=== PATIENT | male | born 1955 | race Caucasian/White ===

== ENCOUNTER 2016-12-09 02:18 | Inpatient (IN) ==
[2016-12-09 02:40] LABS: Basophils # 0.1 K/mcL (0.0-0.2); Basophils % 0.9 %; Eosinophils # 0.9 K/mcL (0.0-0.6); Eosinophils % 8.2 %; Hematocrit 31.5 % (37.5-50.1); Hemoglobin 10.4 g/dL (12.9-16.9); Immature Granulocytes % 0.5 % (0-4); Lymphocytes # 1.7 K/mcL (0.6-4.6); Lymphocytes % 15.2 %; Mean Corpuscular Hemoglobin 29.3 pg (28.0-33.3); Mean Corpuscular Volume 88.7 fL (83.0-100.0); Mean Platelet Volume 10.4 fL (9.4-12.4); Monocytes # 0.7 K/mcL (0.0-1.3); Monocytes % 6.8 %; Neutrophils # 7.5 K/mcL (1.6-8.9); Platelet Count 364 K/mcL (140-400); Red Blood Count 3.55 M/mcL (4.19-5.50); Red Cell Distribution Width 13.3 % (11.5-14.5); Segmented Neutrophils % 68.4 %
[2016-12-09 02:45] LABS: Prothrombin Time 10.9 Seconds (9.4-12.1)
[2016-12-09 02:53] LABS: Calcium 8.6 mg/dL (8.6-10.8); Potassium 4.7 mEq/L (3.5-4.5)
[2016-12-09 03:38] LABS: ABG Base Excess -2.3 mEq/L (-2.0 to 3.0); ABG HCO3 22.4 mEQ/L (21-27); ABG Oxygen Saturation 91 % (95-98); ABG PCO2 37 mmHg (35-45); ABG PH 7.39 pH Units (7.32-7.45); ABG PO2 63 mmHg (85-104); ABG TCO2 23.5 mEq/L (20-26)
[2016-12-09 03:39] LABS: Blood Gas FiO2 40 %
[2016-12-09 06:50] LABS: Chol/HDL Ratio 3.3 (0-4.9)
[2016-12-09 08:43] LABS: Hemoglobin 10.1 g/dL (12.9-16.9); Mean Corpuscular HGB Conc 33.7 g/dL (31.6-35.5); Platelet Count 341 K/mcL (140-400); Red Blood Count 3.37 M/mcL (4.19-5.50); Red Cell Distribution Width 13.5 % (11.5-14.5)
[2016-12-09 08:46] LABS: Prothrombin Time 10.7 Seconds (9.4-12.1)
[2016-12-09 08:49] LABS: Activated Partial Thrombo Time 32.9 Seconds (26.0-36.0)
[2016-12-10 05:47] LABS: Basophils % 0.1 %; Eosinophils % 0.1 %; Hematocrit 24.1 % (37.5-50.1); Immature Granulocytes % 0.6 % (0-4); Lymphocytes # 2.1 K/mcL (0.6-4.6); Mean Corpuscular HGB Conc 33.2 g/dL (31.6-35.5); Mean Corpuscular Hemoglobin 29.4 pg (28.0-33.3); Mean Corpuscular Volume 88.6 fL (83.0-100.0); Mean Platelet Volume 10.9 fL (9.4-12.4); Monocytes # 1.2 K/mcL (0.0-1.3); Neutrophils # 13.8 K/mcL (1.6-8.9); Platelet Count 306 K/mcL (140-400); Red Blood Count 2.72 M/mcL (4.19-5.50); Red Cell Distribution Width 13.6 % (11.5-14.5); Segmented Neutrophils % 80.2 %
[2016-12-10 06:00] LABS: Calcium 7.9 mg/dL (8.6-10.8); Potassium 4.4 mEq/L (3.5-4.5)
[2016-12-10 13:15] LABS: 2009 H1N1 PCR NOT DETECTED (Not Detect); Influenza A PCR Negative (Negative); Influenza B PCR Negative (Negative)
[2016-12-10 15:16] LABS: Basophils % 0.2 %; Eosinophils # 0.1 K/mcL (0.0-0.6); Eosinophils % 0.5 %; Hematocrit 21.3 % (37.5-50.1); Immature Granulocytes % 0.8 % (0-4); Lymphocytes # 1.4 K/mcL (0.6-4.6); Lymphocytes % 10.8 %; Mean Corpuscular HGB Conc 32.9 g/dL (31.6-35.5); Mean Corpuscular Hemoglobin 29.8 pg (28.0-33.3); Mean Corpuscular Volume 90.6 fL (83.0-100.0); Monocytes # 0.9 K/mcL (0.0-1.3); Monocytes % 7.2 %; Neutrophils # 10.5 K/mcL (1.6-8.9); Platelet Count 283 K/mcL (140-400); Red Blood Count 2.35 M/mcL (4.19-5.50); Red Cell Distribution Width 14.1 % (11.5-14.5); Segmented Neutrophils % 80.5 %
[2016-12-10 17:22] LABS: % Iron Saturation 54 % (20-55); Iron 126 mcg/dL (65-175); Transferrin 167 mg/dL (174-364)
[2016-12-10 17:32] LABS: Bilirubin,Urine Negative (Negative); Blood,Urine Negative (Negative); Clarity,Urine Clear (Clear); Color,Urine Yellow (Yellow); Glucose,Urine (UA) 500 mg/dL (Normal); Ketones,Urine Negative (Negative); Leukocyte Esterase,Urine Negative (Negative); Nitrite,Urine Negative (Negative); PH,Urine 5.5 pH Units (5.0-8.0); Protein,Urine 100 mg/dL (Neg-Trace); Specific Gravity,Urine 1.019 (1.010-1.025); Urobilinogen,Urine Normal (Normal)
[2016-12-10 17:45] LABS: Bacteria,Urine None Seen per hpf (None-Few); Hyaline Casts,Urine None Seen per lpf (None-Few); Squamous Epithelial Cell,Urine Few per lpf (None-Few); WBC,Urine 0-3 per hpf (0-3)
[2016-12-11 05:43] LABS: Basophils # 0.1 K/mcL (0.0-0.2); Basophils % 0.5 %; Eosinophils # 0.3 K/mcL (0.0-0.6); Eosinophils % 3.2 %; Hematocrit 25.5 % (37.5-50.1); Hemoglobin 8.2 g/dL (12.9-16.9); Immature Granulocytes % 1.3 % (0-4); Lymphocytes # 1.6 K/mcL (0.6-4.6); Lymphocytes % 17.1 %; Mean Corpuscular HGB Conc 32.2 g/dL (31.6-35.5); Mean Corpuscular Hemoglobin 28.4 pg (28.0-33.3); Mean Corpuscular Volume 88.2 fL (83.0-100.0); Mean Platelet Volume 10.8 fL (9.4-12.4); Monocytes # 0.7 K/mcL (0.0-1.3); Monocytes % 7.8 %; Neutrophils # 6.5 K/mcL (1.6-8.9); Platelet Count 218 K/mcL (140-400); Potassium 4.9 mEq/L (3.5-4.5); Red Blood Count 2.89 M/mcL (4.19-5.50); Red Cell Distribution Width 14.8 % (11.5-14.5); Segmented Neutrophils % 70.1 %
[2016-12-11 08:06] VITALS: BP 167/80
== END 2016-12-11 11:38 | disposition left against medical advice (07) | DRG 246 ==
LOC: EMEROO 02:18 → 2NENU 02:18 → SUATTDRO 07:51 → 2NNU 16:14
PROVIDERS: ADMIT Internal Medicine; ATTEND Internal Medicine

== ENCOUNTER 2017-04-20 21:07 | Inpatient (IN) ==
[2017-04-20] MEDS ORDERED: Furosemide 40 MG/4 ML VIAL IVP ONE ×2 (21:10→23:21)
[2017-04-20] MEDS ORDERED: methylPREDNISolone 125 MG/2 ML VIAL IVP ONE (21:10)
[2017-04-20] MEDS ORDERED: Ipratropium/Albuterol Neb 3 ML IH ONE (21:10)
--- NOTE | 2017-04-20 21:14 | Emergency Department Note ---
Disposition Clinical Impression: Acute exacerbation of chronic obstructive airways disease, Elevated troponin, Respiratory distress Congestive heart failure Qualifiers: Congestive heart failure type: unspecified congestive heart failure type Congestive heart failure chronicity: acute Qualified Code(s): I50.9 - Heart failure, unspecified Chest pain Qualifiers: Chest pain type: other chest pain Qualified Code(s): R07.89 - Other chest pain ; R07.8 - Other chest pain Disposition: Admitted As Inpatient Condition: Fair Forms: ED Satisfaction Letter Time of Disposition: 22:56 SOB HPI - General Chief Complaint: ED Shortness of Breath/Dyspnea Stated Complaint: SOB Time Seen by Provider: 04/20/17 21:07 Source: patient, EMS Mode of arrival: EMS Nursing Notes Reviewed: Yes Vital Signs Reviewed: Yes - History of Present Illness 61-year-old male presents to the emergency Department lameness with a complaint of substernal chest pain which started about 5:30 PM this afternoon while mowing his lawn. No radiation of the pain. He then developed shortness of breath and diaphoresis. He has a history of COPD. He took 6 of his nitroglycerin at home with no relief of the chest pain. EMS gave him one spray of nitroglycerin sublingual which significantly relieved his chest discomfort however his breathing seemed to get worse. Initial oxygen saturation was in the 80s. He received a DuoNeb treatment in route and was placed on CPAP with some improvement. On arrival here patient in moderate respiratory distress and mildly diaphoretic. He is alert. Patient has had some increased cough and congestion for the past few days and was just started on a Z-Bienvenido and steroids yesterday by his PCP. Pt Subjective Complaint: shortness of breath, chest pain Onset (ago): hour(s) (3.5) Context: recent illness Severity: severe Consistency/Duration: constant, gradually worsening Improves with: oxygen, bronchodilators, upright position, medication Worsens with: lying flat, exertion Known history of: COPD, diabetes Associated symptoms: Reports: chest pain, cough, wheezing, diaphoresis. Denies : fever Treatment prior to arrival: oxygen, bronchodilator, nitroglycerin Cough present: Yes Cough Frequency: Intermittent - Related Data Home Medications Medication Instructions Recorded Confirmed Aspirin [Lo-Dose Aspirin EC] 81 mg PO DAILY 12/09/16 12/09/16 Atorvastatin Calcium [Lipitor] 80 mg PO DAILY 12/09/16 12/09/16 Cilostazol 100 mg PO BID 12/09/16 12/09/16 Clopidogrel [Plavix] 75 mg PO DAILY 12/09/16 12/09/16 Ferrous Gluconate 324 mg PO BID 12/09/16 12/09/16 Gabapentin [Neurontin] 600 mg PO TID 12/09/16 12/09/16 Insulin Degludec [Tresiba 55 unit SQ HS 12/09/16 12/09/16 Flextouch U-100] Insulin Human Regular [HumuLIN R] 20 unit SQ TID 12/09/16 12/09/16 Irbesartan [Avapro] 300 mg PO HS 12/09/16 12/09/16 Metoprolol Tartrate 25 mg PO BID 12/09/16 12/09/16 Omeprazole [PriLOSEC] 20 mg PO DAILY 12/09/16 12/09/16 Spironolact/Hydrochlorothiazid 1 tab PO DAILY 12/09/16 12/09/16 [Aldactazide 25-25 Tablet] Vortioxetine Hydrobromide 10 mg PO DAILY 12/09/16 12/09/16 [Trintellix] amLODIPine [Norvasc] 10 mg PO HS 12/09/16 12/09/16 Allergies Allergy/AdvReac Type Severity Reaction Status Date / Time No Known Allergies Allergy Verified 12/09/16 02:29 All systems ED: reviewed and negative except as stated. Cardiovascular: Reports: chest pain Respiratory: Reports: cough, dyspnea, wheezes Past Medical History - Past Medical History Medical history: Reports: coronary artery disease, diabetes, hyperlipidemia, hypertension, myocardial infarction, peripheral artery disease, renal disease Psychiatric history: Reports: no psych history - Social History Smoking Status: Current every day smoker Smokeless Tobacco Status: No Alcohol use: Reports: none Drug use: Reports: none Physical Exam - General General appearance: alert, in distress - Head Head exam: atraumatic, normocephalic, normal inspection - Eye Eye exam: Present: normal appearance, PERRL, EOMI. Absent: scleral icterus, conjunctival injection - ENT ENT exam: normal exam, normal oropharynx, mucous membranes moist - Neck Neck exam: Present: normal inspection, full ROM, trachea midline. Absent: tenderness, meningismus, lymphadenopathy - Chest Chest inspection: Present: normal inspection, symmetric chest wall rise. Absent : tenderness - Respiratory Respiratory exam: Present: respiratory distress, wheezes (Scattered bilateral inspiratory and expiratory wheezes.), other (Course moist bibasilar rales.) - Cardiovascular Cardiovascular exam: Present: normal rhythm, tachycardia, normal heart sounds, other (Frequent ectopy) - Abdominal Exam Abdominal exam: Present: soft, Non-Tender, normal bowel sounds - Extremities Exam Extremities exam: Present: normal inspection, full ROM, pedal edema (2+). Absent: tenderness - Back Exam Back exam: Present: normal inspection. Absent: CVA tenderness (R), CVA tenderness (L) - Neurological Exam Neurological exam: Present: alert, oriented X3 - Psychiatric Psychiatric exam: Present: anxious - Skin Skin exam: Present: diaphoresis. Absent: cyanosis Course Course Narrative: 61-year-old male with history of COPD presents to the emergency department with chest pain and difficulty breathing. Arrived on CPAP. Placed on BiPAP on arrival. Patient received 3 DuoNeb and IV Solu-Medrol with significant improvement in his breathing. He also received Lasix 40 mg IV. Chest pain mostly resolved.. Workup revealed elevated troponin. Patient given aspirin. The hospitalist, Dr. Holland, was consulted and accepted admission of the patient. - Consultations Consultation #1: The hospitalist, Dr. Holland, was consulted and accepted admission of the patient. Time: 22:30 Vital Signs Temperature 97 F L 04/20/17 21:09 Pulse Rate 120 04/20/17 21:09 Respiratory Rate 26 04/20/17 21:09 Blood Pressure 166/96 04/20/17 21:09 O2 Sat by Pulse Oximetry 92 04/20/17 21:09 Temperature 97 F L 04/20/17 21:09 Pulse Rate 73 04/20/17 22:27 Respiratory Rate 16 04/20/17 22:27 Blood Pressure 151/74 04/20/17 22:27 O2 Sat by Pulse Oximetry 95 04/20/17 22:27 Oxygen Delivery Oxygen Delivery Bipap Shortness of Breath/Dyspnea - Lab Data Result diagrams: 04/20/17 21:31 04/20/17 21:31 Lab Results 04/20/17 04/20/17 04/20/17 Range/Units 21:31 21:31 21:31 WBC 14.4 H (4.3-11.1) K/mcL RBC 3.25 L (4.19-5.50) M/mcL Hgb 9.5 L (12.9-16.9) g/dL Hct 30.4 L (37.5-50.1) % MCV 93.5 (83.0-100.0) fL MCH 29.2 (28.0-33.3) pg MCHC 31.3 L (31.6-35.5) g/dL RDW 14.7 H (11.5-14.5) % Plt Count 405 H (140-400) K/mcL MPV 9.7 (9.4-12.4) fL Immature Gran % 1.0 (0-4) % Seg Neutrophils % 87.6 % Lymphocytes % 7.4 % Monocytes % 3.9 % Eosinophils % 0.0 % Basophils % 0.1 % Neutrophils # 12.6 H (1.6-8.9) K/mcL Lymphocytes # 1.1 (0.6-4.6) K/mcL Monocytes # 0.6 (0.0-1.3) K/mcL Eosinophils # 0.0 (0.0-0.6) K/mcL Basophils # 0.0 (0.0-0.2) K/mcL Nucleated RBCs/100 WBC 0.1 H (0) /100 WBC Sodium 136 (136-145) mEq/L Potassium 4.9 H (3.5-4.5) mEq/L Chloride 107 (98-109) mEq/L Carbon Dioxide 16 L (19-29) mEq/L BUN 68 H (8-26) mg/dL Creatinine 2.97 H (0.72-1.25) mg/dL Est GFR ( Amer) 26 L (> 60) Est GFR (Non-Af Amer) 22 L (> 60) BUN/Creatinine Ratio 23 (6-26) Glucose 383 H (70-99) mg/dL Calculated Osmolality 318 H (280-300) Lactic Acid 3.3 H (0.5-2.2) mmol/L Calcium 9.1 (8.6-10.8) mg/dL Troponin I (0-0.03) ng/mL B-Natriuretic Peptide (0-100) pg/mL 04/20/17 04/20/17 Range/Units 21:31 21:31 WBC (4.3-11.1) K/mcL RBC (4.19-5.50) M/mcL Hgb (12.9-16.9) g/dL Hct (37.5-50.1) % MCV (83.0-100.0) fL MCH (28.0-33.3) pg MCHC (31.6-35.5) g/dL RDW (11.5-14.5) % Plt Count (140-400) K/mcL MPV (9.4-12.4) fL Immature Gran % (0-4) % Seg Neutrophils % % Lymphocytes % % Monocytes % % Eosinophils % % Basophils % % Neutrophils # (1.6-8.9) K/mcL Lymphocytes # (0.6-4.6) K/mcL Monocytes # (0.0-1.3) K/mcL Eosinophils # (0.0-0.6) K/mcL Basophils # (0.0-0.2) K/mcL Nucleated RBCs/100 WBC (0) /100 WBC Sodium (136-145) mEq/L Potassium (3.5-4.5) mEq/L Chloride (98-109) mEq/L Carbon Dioxide (19-29) mEq/L BUN (8-26) mg/dL Creatinine (0.72-1.25) mg/dL Est GFR ( Amer) (> 60) Est GFR (Non-Af Amer) (> 60) BUN/Creatinine Ratio (6-26) Glucose (70-99) mg/dL Calculated Osmolality (280-300) Lactic Acid (0.5-2.2) mmol/L Calcium (8.6-10.8) mg/dL Troponin I 0.17 H* (0-0.03) ng/mL B-Natriuretic Peptide 927 H (0-100) pg/mL Critical Care Time Critical Care Time: Yes Total Critical Care Time: 40 Attestation: Critical care performed: Time is exclusive of separately billable procedures. Time includes: direct patient care, patient reassessment, coordination of patient care, interpretation of data (laboratory data, radiology data, and respiratory data), review of patient's medical records, medical consultation and documentation of patient care. Procedures included in critical care time: Procedures excluded from critical care time:
[2017-04-20 21:40] LABS: Basophils % 0.1 %; Hematocrit 30.4 % (37.5-50.1); Hemoglobin 9.5 g/dL (12.9-16.9); Lymphocytes # 1.1 K/mcL (0.6-4.6); Lymphocytes % 7.4 %; Mean Corpuscular HGB Conc 31.3 g/dL (31.6-35.5); Mean Corpuscular Hemoglobin 29.2 pg (28.0-33.3); Mean Corpuscular Volume 93.5 fL (83.0-100.0); Mean Platelet Volume 9.7 fL (9.4-12.4); Monocytes # 0.6 K/mcL (0.0-1.3); Monocytes % 3.9 %; Neutrophils # 12.6 K/mcL (1.6-8.9); Nucleated Red Blood Cells 0.1 /100 WBC (0); Platelet Count 405 K/mcL (140-400); Red Blood Count 3.25 M/mcL (4.19-5.50); Red Cell Distribution Width 14.7 % (11.5-14.5); Segmented Neutrophils % 87.6 %
[2017-04-20 21:51] LABS: Calcium 9.1 mg/dL (8.6-10.8); Potassium 4.9 mEq/L (3.5-4.5)
[2017-04-20] MEDS ORDERED: Aspirin 81 MG TAB.CHEW PO STA (22:52)
[2017-04-20] MEDS ORDERED: Sodium Bicarbonate 50 MEQ/50 ML VIAL IVP ONE (23:17)
[2017-04-20] MEDS ORDERED: Calcium Gluconate 1,000 MG in D5% in Water 100 ML IVPB ONE (23:17)
[2017-04-20] MEDS ORDERED: *HR* Heparin 5,000 UNIT/ML VIAL IVP PRN ×2 (23:22)
[2017-04-20] MEDS ORDERED: *HR* Heparin 5,000 UNIT/ML VIAL IVP ONE (23:22)
[2017-04-20] MEDS ORDERED: Heparin 25,000 UNIT/500 ML D5W 25,000 UNIT/500 ML MLS IVC SCH (23:30)
[2017-04-20] MEDS ORDERED: Nitroglycerin 25 MG/250 ML INFUS..BTL IVC SCH (23:30)
--- NOTE | 2017-04-20 23:32 | Internal Med History&Physical ---
Date of Encounter: 04/20/17 Time of Encounter: 23:31 Assessment and Plan (1) Diabetes mellitus Current visit: Yes Status: Acute Continue home regimen. In addition to sliding scale. Qualifiers: Diabetes mellitus type: type 2 Qualified Code(s): E11.9 - Type 2 diabetes mellitus without complications (2) Acute exacerbation of chronic obstructive airways disease Current visit: Yes Status: Acute Will give [id number] nebulizer treatments low-dose steroids. (3) Congestive heart failure Current visit: Yes Status: Acute I think this is the main reason for presentation. Will give Lasix 80 mg initially than 40 mg IV twice daily. Qualifiers: Congestive heart failure type: unspecified congestive heart failure type Congestive heart failure chronicity: acute Qualified Code(s): I50.9 - Heart failure, unspecified (4) Elevated troponin Current visit: Yes Status: Acute Rule out non-STEMI type I. Given the typicality of his pain I will start the patient on heparin drip and Nitro drip as a still hypertensive. Continue dual antiplatelet therapy (5) Acute respiratory failure Current visit: No Status: Acute Due to congestive heart failure mainly, to a lesser extent COPD exacerbation. He is currently on BiPAP continue BiPAP support Qualifiers: Respiratory failure complication: hypoxia Qualified Code(s): J96.01 - Acute respiratory failure with hypoxia Internal Medicine - H&P: HPI History of present illness: Mr. Peters is a 61 year old male with multiple medical problems including coronary artery disease status post recent PCI on dual antiplatelet therapy with aspirin Plavix, ischemic cardiomyopathy ejection fraction 45%, diabetes mellitus, hypertension, chronic kidney disease stage 3, and suspected history of COPD given 90 pack/year smoking history presented emergency room today with shortness of breath. Patient was mowing his land for 4 hours today started experiencing left pectoral chest pain lasted for approximately 2 hours till he arrived to emergency room. He took 6 tablets of sublingual nitroglycerin home without improvement of his pain. He was given sublingual nitroglycerin spray by paramedics with improvement of his chest pain. His also noted that he was notably short of breath during his chest pain. He was hypoxic and paramedics placed him on BiPAP. 2 days ago patient has seen his PCP who thought that he is having a COPD exacerbation and he was started on azithromycin as well as prednisone which he started taking yesterday. Denies any fevers or chills. He was off pain during my interview Past Med Surg Social Fam HX - Past Medical History Medical history: coronary artery disease, diabetes, hyperlipidemia, hypertension , myocardial infarction, peripheral artery disease, renal disease Psychiatric history: no psych history - Social History Smoking Status: Current every day smoker Smokeless Tobacco Status: No Alcohol use: none Drug use: none - Family History Mother Living Status: Hx Family Cardiac Disorders: Yes ([place]) Hx Family Respiratory Disorders: No Hx Family Cancer: No Hx Family GI Disorders: No Hx Family Endocrine Disorder: Yes (DM) Hx Family Neuromuscular Disorders: No Hx Family Neurologic Disorders: No Hx Family HEENT Disorders: No Hx Family Autoimmune Disorders: No Father Living Status: Still Living Hx Family Cardiac Disorders: Yes (pacer) Hx Family Respiratory Disorders: No Hx Family Cancer: No Hx Family GI Disorders: No Hx Family Endocrine Disorder: Yes (dM) Hx Family Neuromuscular Disorders: No Hx Family Neurologic Disorders: No Hx Family HEENT Disorders: No Hx Family Autoimmune Disorders: No Son Living Status: Still Living Hx Family Cardiac Disorders: Yes (HTN) Hx Family Respiratory Disorders: No Hx Family Cancer: No Hx Family GI Disorders: No Hx Family Endocrine Disorder: No Hx Family Neuromuscular Disorders: No Hx Family Neurologic Disorders: No Hx Family HEENT Disorders: No Hx Family Autoimmune Disorders: No Internal Medicine - H&P: Meds Aspirin [Lo-Dose Aspirin EC] 81 mg PO DAILY 12/09/16 [History] Atorvastatin Calcium [Lipitor] 80 mg PO DAILY 12/09/16 [History] Cilostazol 100 mg PO BID 12/09/16 [History] Clopidogrel [Plavix] 75 mg PO DAILY 12/09/16 [History] Ferrous Gluconate 324 mg PO BID 12/09/16 [History] Gabapentin [Neurontin] 600 mg PO TID 12/09/16 [History] Insulin Degludec [Tresiba Flextouch U-100] 55 unit SQ HS 12/09/16 [History] Insulin Human Regular [HumuLIN R] 20 unit SQ TID 12/09/16 [History] Irbesartan [Avapro] 300 mg PO HS 12/09/16 [History] Metoprolol Tartrate 25 mg PO BID 12/09/16 [History] Omeprazole [PriLOSEC] 20 mg PO DAILY 12/09/16 [History] Spironolact/Hydrochlorothiazid [Aldactazide 25-25 Tablet] 1 tab PO DAILY [History] Vortioxetine Hydrobromide [Trintellix] 10 mg PO DAILY 12/09/16 [History] amLODIPine [Norvasc] 10 mg PO HS 12/09/16 [History] Allergies No Known Allergies Allergy (Verified 12/09/16 02:29) All Systems PM: A 10-system review of systems was performed and is negative for pertinent findings except as documented above in the HPI. Review of systems: 10 point review of systems is negative except for HPI - Constitutional Vitals: Temp Pulse Resp BP Pulse Ox 97 F L 107 22 183/93 99 04/20/17 21:09 04/20/17 23:11 04/20/17 23:11 04/20/17 23:11 04/20/17 23:11 Exam: Gen.: patient is alert oriented times 3 mild respiratory distress cardiac: normal S1 S2 no additional sounds or murmurs chest: crackles in both bases. diminished air entry. scattered expiratory wheezes abdomen soft nontender nondistended normal bowel sounds lower extremity 1+ swelling. Neuro: no new focal deficits Internal Med - H&P Results - Labs CBC & Chem 7: 04/20/17 21:31 04/20/17 21:31 Labs: Short CBC 04/20/17 Range/Units 21:31 WBC 14.4 H (4.3-11.1) K/mcL Hgb 9.5 L (12.9-16.9) g/dL Hct 30.4 L (37.5-50.1) % Plt Count 405 H (140-400) K/mcL Neutrophils # 12.6 H (1.6-8.9) K/mcL BMP 04/20/17 21:31 Sodium 136 Potassium 4.9 H Chloride 107 Carbon Dioxide 16 L BUN 68 H Creatinine 2.97 H Glucose 383 H Calcium 9.1 Cardiac Enzymes 04/20/17 Range/Units 21:31 Troponin I 0.17 H* (0-0.03) ng/mL - Impressions ITS Impressions Chest X-Ray 04/20/17 21:10 IMPRESSION: Prominence of the interstitial markings and peribronchial thickening suggestive of interstitial edema. D/ / Farideh Cole Cha, MD / Farideh Cole Cha, MD Interpreting Provider: Farideh Cole Cha, MD
[2017-04-20] MEDS ORDERED: Azithromycin 500 MG in D5% in Water 250 ML IVPB SCH (23:45)
[2017-04-21 00:29] LABS: Hematocrit 28.9 % (37.5-50.1); Immature Platelets 2.7 % (1.1-6.1); Mean Corpuscular HGB Conc 31.1 g/dL (31.6-35.5); Mean Corpuscular Hemoglobin 29.1 pg (28.0-33.3); Mean Corpuscular Volume 93.5 fL (83.0-100.0); Red Blood Count 3.09 M/mcL (4.19-5.50); Red Cell Distribution Width 14.6 % (11.5-14.5)
[2017-04-21 00:38] LABS: INR 1.1; Prothrombin Time 11.5 Seconds (9.4-12.1)
[2017-04-21 00:41] LABS: Activated Partial Thrombo Time 27.9 Seconds (26.0-36.0)
[2017-04-21] MEDS ORDERED: Furosemide 40 MG/4 ML VIAL ONE (01:47)
[2017-04-21] MEDS ORDERED: Furosemide 40 MG/4 ML VIAL IVP ONE (01:51)
[2017-04-21] MEDS ORDERED: Vancomycin 1,500 MG in D5% in Water 250 ML IVPB SCH (02:00)
[2017-04-21] MEDS ORDERED: Ipratropium/Albuterol Neb 3 ML ONE (02:04)
[2017-04-21] MEDS ORDERED: Levalbuterol Neb 1.25 MG/3 ML ONE ×2 (02:06)
[2017-04-21] MEDS ORDERED: *HR* Dextrose 50 % in Water (Syg) 50 ML SYRINGE IVP PRN ×2 (02:23→10:22)
[2017-04-21] MEDS ORDERED: INSULIN HUMAN REGULAR IVC SCH (02:30)
[2017-04-21] MEDS ORDERED: SODIUM CHLORIDE 0.9% IVC SCH (02:30)
[2017-04-21 03:21] LABS: ABG Base Excess -11.4 mEq/L (-2.0 to 3.0); ABG HCO3 13.4 mEQ/L (21-27); ABG Oxygen Saturation 99 % (95-98); ABG PCO2 26 mmHg (35-45); ABG PH 7.32 pH Units (7.32-7.45); ABG PO2 126 mmHg (85-104); ABG TCO2 14.2 mEq/L (20-26)
[2017-04-21 03:22] LABS: Blood Gas FiO2 50 %
[2017-04-21] MEDS: Insulin Human Regular 100 UNIT in 0.9 % Sodium Chloride 100 ML IVC SCH ×2 (03:54→08:00)
[2017-04-21 04:33] LABS: Bilirubin,Urine Negative (Negative); Blood,Urine Small (Negative); Clarity,Urine Clear (Clear); Color,Urine Yellow (Yellow); Glucose,Urine (UA) 500 mg/dL (Normal); Ketones,Urine Negative (Negative); Leukocyte Esterase,Urine Negative (Negative); Nitrite,Urine Negative (Negative); Protein,Urine 100 mg/dL (Neg-Trace); Specific Gravity,Urine 1.012 (1.010-1.025); Urobilinogen,Urine Normal (Normal)
[2017-04-21 04:35] LABS: Bacteria,Urine None Seen per hpf (None-Few); Hyaline Casts,Urine None Seen per lpf (None-Few); RBC,Urine 0-3 per hpf (0-3); Squamous Epithelial Cell,Urine None Seen per lpf (None-Few); WBC,Urine 0-3 per hpf (0-3)
[2017-04-21] MEDS: Levalbuterol Neb 1.25 MG/3 ML IH SCH ×2 (04:40→09:50)
[2017-04-21] MEDS ORDERED: Vancomycin 1,500 MG in D5% in Water 250 ML IVPB ONE (05:00)
--- NOTE | 2017-04-21 05:04 | Event Note ---
Date of Encounter: 04/21/17 Time of Encounter: 04:50 Patient initially presented with shortness of breath and chest pain. Patient was admitted to [address] [place] [address] and apparently in transfer patient was taken off BiPAP and the patient became acutely tachypneic and in respiratory distress. At the time I evaluated the patient he was breathing approximately 30 times a minute. On exam patient had diffuse crackles bilaterally with occasional scattered wheezes. There was trace lower extremity edema. Repeat chest x-ray showed worsening pulmonary edema. Repeat labs showed an elevated lactic acid of 4.1 increased from 3.3 on presentation and a significant troponin elevation from 0.17 to 6.92. Repeat EKG did not show ST elevation. Patient was chest pain-free on a nitroglycerin infusion. Initial ABG was obtained prior to transfer to the intensive care unit and the results were communicated to the respiratory therapist and it was reported that the patient a pH of 7.19 with a PCO2 of 43 with a PO2 of 40. Given concern that this was a venous sample was not resulted in the computer. Patient was transferred to the intensive care for further monitoring. Patient has remained on BiPAP and has maintained his oxygen saturation well and his tachypnea has greatly improved. Repeat ABG upon arrival showed a pH of 7.32, PCO2 26, PO2 of 126. Patient appears to have a metabolic acidosis with mild anion gap elevation, likely related to lactic acidosis. Patient also has a significant leukocytosis that was 14.4 on admission and has increased to 22.2. Patient was recently started on steroids by his PCP. At this point the patient's clinical picture and ultimately diagnosis is somewhat cloudy. I believe his respiratory distress is likely related to flash pulmonary edema in the setting of myocardial ischemia given his troponin elevation. Patient also meets SIRS criteria with leukocytosis and tachycardia but there is no obvious source of infection. Given the patient's lactic acidosis appear antibiotics were initiated. However fluids were not given given the patient's extensive pulmonary edema. Patient's clinical condition has stabilized once arrived in the ICU. We will continue with IV diuresis and BiPAP support. Cardiology and critical care have been consulted. We will continue with aspirin, Plavix, statin, heparin drip.
[2017-04-21 05:28] LABS: Basophils % 0.1 %; Hematocrit 28.4 % (37.5-50.1); Immature Granulocytes % 1.2 % (0-4); Immature Platelets 2.7 % (1.1-6.1); Lymphocytes # 0.6 K/mcL (0.6-4.6); Lymphocytes % 3.6 %; Mean Corpuscular HGB Conc 31.7 g/dL (31.6-35.5); Mean Corpuscular Hemoglobin 29.3 pg (28.0-33.3); Mean Corpuscular Volume 92.5 fL (83.0-100.0); Mean Platelet Volume 9.7 fL (9.4-12.4); Monocytes # 0.1 K/mcL (0.0-1.3); Monocytes % 0.8 %; Neutrophils # 14.7 K/mcL (1.6-8.9); Platelet Count 417 K/mcL (140-400); Red Blood Count 3.07 M/mcL (4.19-5.50); Red Cell Distribution Width 14.7 % (11.5-14.5); Segmented Neutrophils % 94.3 %
[2017-04-21 05:32] LABS: Ionized Calcium 1.18 mmol/L (1.15-1.35)
[2017-04-21 05:43] LABS: Alanine Aminotransferase 37 Units/L (0-55); Albumin 3.3 g/dL (3.5-5.0); Albumin/Globulin Ratio 0.8 (1.1-2.2); Alkaline Phosphatase 108 Units/L (38-126); Aspartate Amino Transferase 148 Units/L (5-34); BUN/Creatinine Ratio 24 (6-26); Bilirubin,Total 0.1 mg/dL (0.2-1.2); Blood Urea Nitrogen 73 mg/dL (8-26); Calcium 9.2 mg/dL (8.6-10.8); Carbon Dioxide 14 mEq/L (19-29); Chloride 104 mEq/L (98-109); Creatine Kinase 1630 Units/L (30-200); Globulin 3.9 g/dL (2.4-3.5); Glucose 480 mg/dL (70-99); Magnesium 2.1 mg/dL (1.6-2.6); Osmolality,Calculated 319 (280-300); Phosphorous 4.4 mg/dL (2.3-4.7); Potassium 4.9 mEq/L (3.5-4.5); Sodium 133 mEq/L (136-145); Total Protein 7.2 g/dL (6.0-8.3); eGFR For African Americans 25 (> 60); eGFR For Non-African Americans 21 (> 60)
[2017-04-21 05:44] LABS: Bilirubin,Direct < 0.1 mg/dL (0.0-0.5)
[2017-04-21] MEDS ORDERED: methylPREDNISolone 125 MG/2 ML VIAL IVP SCH (06:00)
[2017-04-21 06:10] LABS: Beta-Hydroxybutyric Acid 0.26 mmol/L (0.02-0.27)
[2017-04-21] MEDS ORDERED: Insulin LISPRO 300 UNITS/3 ML VIAL SQ SCH ×2 (07:30→21:00)
--- NOTE | 2017-04-21 07:51 | Pulmonology Consult Note ---
Date of Encounter: 04/21/17 Time of Encounter: 07:48 Assessment and Plan (1) NSTEMI (non-ST elevated myocardial infarction) Current Visit: No Status: Acute This is a 61-year-old gentleman who I had the pleasure of evaluating in the intensive care unit for acute respiratory failure. It appears the patient is suffering from non-ST elevation myocardial infarction and has been started on empiric acute coronary syndrome treatment including infusion of heparin nitroglycerin he has been given aspirin and takes Plavix at home (along with ASA ) which has been readministered here. Unfortunately his clinical course has been complicated by acute pulmonary edema leading to respiratory failure. Encouragingly this is resolved with use of positive airway pressure and diuresis. He does have a metabolic acidosis which is a combination of elevated lactate likely from myocardial infarction along with acute on chronic kidney injury. Unfortunately his volume status overall appears to be depleted however with acute pulmonary edema we are limited on amount of intravenous crystalloid infusion that can be given however given overall stabilization in his course I favor starting intravenous fluids at a low rate to help improve kidney function and in preparation for likely contrast load given if patient goes to left heart catheterization. Nephrology is may be consulted given acute decline in renal function The bridge construction inspector point of care technician has been notified of this patient's condition and she is agreed to see the patient on an urgent basis in preparation for this I have also ordered a two-dimensional echocardiogram on an urgent basis and in addition to after mentioned medications I have added a beta garland for persistent hypertension. I reviewed the ECG again this morning that was taken with troponin elevation now to 45 and the pattern to my evaluation does not appear to be consistent with ST elevation myocardial infarction. From a respiratory standpoint I do not feel the patient's underlying COPD and possible mild exacerbation is the main culprit in this situation although no doubt it is contributing to overall worsening of cardiovascular health. I do not feel inclined to continue oral steroids at present patient can be given bronchodilators however. Although there is concern for sepsis I think overall laboratory values and presentation are much more consistent with myocardial infarction and well empiric antimicrobials of been started and cultures obtained they can likely be discontinued in the next 24 hours. We will continue to monitor his renal function panel, and complete blood count counts while on heparin infusion. (2) MILLY (acute kidney injury) Current Visit: Yes Status: Acute (3) HTN (hypertension) Current Visit: No Status: Chronic Qualifiers: Hypertension type: essential hypertension Qualified Code(s): I10 - Essential (primary) hypertension (4) Type 2 diabetes mellitus Current Visit: No Status: Chronic Qualifiers: Diabetes mellitus complication status: with circulatory complication Diabetes mellitus complication detail: with peripheral angiopathy without gangrene Diabetes mellitus care home insulin use: with intermodal dispatcher use Qualified Code(s): E11.51 - Type 2 diabetes mellitus with diabetic peripheral angiopathy without gangrene; Z79.4 - alf (current) use of insulin (5) Acute respiratory failure Current Visit: No Status: Acute Qualifiers: Respiratory failure complication: hypoxia Qualified Code(s): J96.01 - Acute respiratory failure with hypoxia (6) Mobitz (type) I (Wenckebach's) atrioventricular block Current Visit: No Status: Acute (7) DVT prophylaxis Current Visit: No Status: Acute (8) Metabolic acidosis Current Visit: No Status: Acute History of Present Illness Consult date: 04/21/17 Requesting physician: Clay Holland Reason for consult: hypoxemia Chief complaint: Chest Pain History of present illness: This is a very pleasant 61-year-old gentleman past medical history of COPD chronic kidney disease hypertension and coronary artery disease status post PCI in November who presented to the ED for chest pain. This chest pain started after mowing his lawn for 4 hours and the heat it was typical cardiac in nature located in the sternum with associated jaw discomfort. He took nitroglycerin for this without relief and called EMS who is in later brought the patient to the emergency department. He recently been treated for a COPD exacerbation with steroid and azithromycin and had noticed that he had cough over the last week. Admission to the ED troponin was mildly elevated and chest x-ray was concerning for pulmonary edema was transferred to stepdown unit for further evaluation started on empiric therapy for acute coronary syndrome when he arrived to the stepdown unit was noted to be acutely hypoxemic respiratory distress was placed on positive airway pressure support and given diuresis with overall improvement in saturation transferred to the ICU for further care. Overnight chest pain has been improving with nitroglycerin infusion. His breathing is much better now on he denies any significant discomfort. It is notable that his labs last night were notable for leukocytosis and elevated lactate and there was concern for infection so he was started on empiric antimicrobial therapy is kidney function continues to decline since admission. Past Med Surg Social Fam HX - Past Medical History Medical history: COPD, coronary artery disease, diabetes, hyperlipidemia, hypertension, myocardial infarction, peripheral artery disease, renal disease Psychiatric history: no psych history - Social History Smoking Status: Former smoker Smokeless Tobacco Status: No Alcohol use: none Drug use: none - Family History Mother Living Status: Age at : 47 Cause of : heart attack Hx Family Cardiac Disorders: Yes (AR) Hx Family Respiratory Disorders: No Hx Family Cancer: No Hx Family GI Disorders: No Hx Family Endocrine Disorder: Yes (DM) Hx Family Neuromuscular Disorders: No Hx Family Neurologic Disorders: No Hx Family HEENT Disorders: No Hx Family Autoimmune Disorders: No Father Name: Abel Peters Sophia Living Status: Still Living Hx Family Cardiac Disorders: Yes (pacer) Hx Family Respiratory Disorders: No Hx Family Cancer: No Hx Family GI Disorders: No Hx Family Endocrine Disorder: Yes (dM) Hx Family Neuromuscular Disorders: No Hx Family Neurologic Disorders: No Hx Family HEENT Disorders: No Hx Family Autoimmune Disorders: No Son Living Status: Still Living Hx Family Cardiac Disorders: Yes (HTN) Hx Family Respiratory Disorders: No Hx Family Cancer: No Hx Family GI Disorders: No Hx Family Endocrine Disorder: No Hx Family Neuromuscular Disorders: No Hx Family Neurologic Disorders: No Hx Family HEENT Disorders: No Hx Family Autoimmune Disorders: No Medications and Allergies Aspirin [Lo-Dose Aspirin EC] 81 mg PO DAILY 12/09/16 [History] Atorvastatin Calcium [Lipitor] 80 mg PO DAILY 12/09/16 [History] Cilostazol 100 mg PO BID 12/09/16 [History] Clopidogrel [Plavix] 75 mg PO DAILY 12/09/16 [History] Ferrous Gluconate 324 mg PO BID 12/09/16 [History] Gabapentin [Neurontin] 600 mg PO TID 12/09/16 [History] Insulin Degludec [Tresiba Flextouch U-100] 55 unit SQ HS 12/09/16 [History] Insulin Human Regular [HumuLIN R] 20 unit SQ TID 12/09/16 [History] Irbesartan [Avapro] 300 mg PO HS 12/09/16 [History] Metoprolol Tartrate 25 mg PO BID 12/09/16 [History] Omeprazole [PriLOSEC] 20 mg PO DAILY 12/09/16 [History] Spironolact/Hydrochlorothiazid [Aldactazide 25-25 Tablet] 1 tab PO DAILY [History] Vortioxetine Hydrobromide [Trintellix] 10 mg PO DAILY 12/09/16 [History] amLODIPine [Norvasc] 10 mg PO HS 12/09/16 [History] Allergies No Known Allergies Allergy (Verified 12/09/16 02:29) All Systems: A 10-system review of systems was performed and is negative for pertinent findings except as documented above in the HPI. Physical Examination Vital Signs: Vital Signs, Last 4 Hours Temp Pulse Resp BP Pulse Ox 04/21/17 07:46 97.4 F L 04/21/17 06:03 96 15 130/66 100 04/21/17 05:00 97 15 143/75 100 04/21/17 04:40 15 100 04/21/17 04:00 97 15 145/68 100 General appearance: no acute distress Eyes: nonicteric ENT: oropharynx moist Effort: normal Auscultation: bilateral: rales Cardiovascular: regular rate and rhythm Gastrointestinal: normoactive bowel sounds, soft Extremities: no cyanosis, no clubbing, pink and warm Musculoskeletal: no deformities normal mental status, non-focal exam mood appropriate Results - Laboratory Findings CBC and BMP: 04/21/17 05:20 04/21/17 05:20 ABG ABG pH 7.32 pH Units (7.32-7.45) 04/21/17 03:09 ABG pCO2 26 mmHg (35-45) L 04/21/17 03:09 ABG pO2 126 mmHg (85-104) H 04/21/17 03:09 ABG O2 Saturation 99 % (95-98) H 04/21/17 03:09 PT/INR, D-dimer PT 11.5 Seconds (9.4-12.1) 04/21/17 00:22 Abnormal lab findings: Abnormal lab results WBC 15.6 K/mcL (4.3-11.1) H 04/21/17 05:20 RBC 3.07 M/mcL (4.19-5.50) L 04/21/17 05:20 Hgb 9.0 g/dL (12.9-16.9) L 04/21/17 05:20 Hct 28.4 % (37.5-50.1) L 04/21/17 05:20 RDW 14.7 % (11.5-14.5) H 04/21/17 05:20 Plt Count 417 K/mcL (140-400) H 04/21/17 05:20 Neutrophils # 14.7 K/mcL (1.6-8.9) H 04/21/17 05:20 Nucleated RBCs/100 WBC 0.1 /100 WBC (0) H 04/20/17 21:31 ABG pCO2 26 mmHg (35-45) L 04/21/17 03:09 ABG pO2 126 mmHg (85-104) H 04/21/17 03:09 ABG HCO3 13.4 mEQ/L (21-27) L 04/21/17 03:09 ABG Total CO2 14.2 mEq/L (20-26) L 04/21/17 03:09 ABG O2 Saturation 99 % (95-98) H 04/21/17 03:09 ABG Base Excess -11.4 mEq/L (-2.0 to 3.0) L 04/21/17 03:09 Sodium 133 mEq/L (136-145) L 04/21/17 05:20 Potassium 4.9 mEq/L (3.5-4.5) H 04/21/17 05:20 Carbon Dioxide 14 mEq/L (19-29) L 04/21/17 05:20 BUN 73 mg/dL (8-26) H 04/21/17 05:20 Creatinine 3.04 mg/dL (0.72-1.25) H 04/21/17 05:20 Est GFR ( Amer) 25 (> 60) L 04/21/17 05:20 Est GFR (Non-Af Amer) 21 (> 60) L 04/21/17 05:20 Glucose 480 mg/dL (70-99) H 04/21/17 05:20 POC Glucose 398 (58-89) H 04/20/17 23:10 Calculated Osmolality 319 (280-300) H 04/21/17 05:20 Lactic Acid 4.3 mmol/L (0.5-2.2) H* 04/21/17 05:20 Total Bilirubin 0.1 mg/dL (0.2-1.2) L 04/21/17 05:20 AST 148 Units/L (5-34) H 04/21/17 05:20 Creatine Kinase 1630 Units/L (30-200) H 04/21/17 05:20 Troponin I 45.51 ng/mL (0-0.03) H* 04/21/17 06:26 B-Natriuretic Peptide 927 pg/mL (0-100) H 04/20/17 21:31 Albumin 3.3 g/dL (3.5-5.0) L 04/21/17 05:20 Globulin 3.9 g/dL (2.4-3.5) H 04/21/17 05:20 Albumin/Globulin Ratio 0.8 (1.1-2.2) L 04/21/17 05:20 Urine Protein 100 mg/dL (Neg-Trace) H 04/21/17 04:20 Urine Glucose (UA) 500 mg/dL (Normal) H 04/21/17 04:20 Urine Blood Small (Negative) H 04/21/17 04:20 - Diagnostic Findings Chest x-ray: report reviewed, image reviewed CT scan - chest: report reviewed, image reviewed - Clinical Findings Intake & Output: Intake & Output 04/20/17 04/20/17 04/21/17 15:59 23:59 07:59 Intake Total 391.0 / 391.0 Output Total 1000 / 1000 Balance -609.0 / -609.0 Consult Discharge Plan - Plan Referrals: NO,PCP [Primary Care Provider] -
[2017-04-21] MEDS ORDERED: Piperacillin/Tazobactam 3.375 GM in D5% in Water (Mini-Bag+) 100 ML IVPB SCH (08:00)
[2017-04-21] MEDS ORDERED: 0.9 % Sodium Chloride 1,000 ML IVC SCH ×2 (08:15→10:22)
[2017-04-21] MEDS ORDERED: Furosemide 40 MG/4 ML VIAL IVP SCH ×2 (09:00→21:00)
[2017-04-21] MEDS ORDERED: predniSONE 20 MG TABLET PO SCH (09:00)
[2017-04-21] MEDS ORDERED: Aspirin Enteric Coated 81 MG Tablet PO SCH (09:00)
[2017-04-21] MEDS ORDERED: Heparin 25,000 UNIT/500 ML D5W 25,000 UNIT/500 ML MLS IVC SCH (10:22)
[2017-04-21] MEDS ORDERED: Insulin Human Regular 100 UNIT in 0.9 % Sodium Chloride 100 ML IVC SCH (10:22)
[2017-04-21] MEDS ORDERED: *HR* Heparin 5,000 UNIT/ML VIAL IVP PRN ×2 (10:22)
[2017-04-21] MEDS ORDERED: Nitroglycerin 25 MG/250 ML INFUS..BTL IVC SCH (10:22)
--- NOTE | 2017-04-21 10:30 | Cardiology Consult Note ---
Date of Encounter: 04/21/17 Time of Encounter: 08:00 Assessment and Plan (1) NSTEMI (non-ST elevated myocardial infarction) Current Visit: No Status: Acute Patient presents with chest pain, ECG changes and elevated troponin consistent with an acute coronary syndrome. His echo demonstrates new wall motion abnormalities. He has been chest pain free since admission and hemodynamically stable. I discussed these findings with the patient and recommended LHC. He would like to consider transfer to [facility] where his primary signal circuit designer is. He would like to discuss with his family first before making further decisions. For now, continue medical therapy with heparin gtt, asa, statin, plavix and BB. Will also discuss case with Interventional Cardiology. Discussion w patient/family: The assessment and plan as outlined above was discussed with the patient and/or family members who expressed understanding and agreement. All questions were answered. Thank you for involving us in the care of your patient. Please call with any questions. History of Present Illness Consult date: 04/21/17 Requesting physician: Hari Manuel Consult reason: NSTEMI Chief complaint: Chest Pain History of present illness: Mr. Peters is a 61 year old male presenting with chest pain and SOB. He states that he was out mowing the lawn yesterday on a riding mower and doing yard work for 4 hours. When he was done, he entered his house and sat in a chair. He then developed substernal chest pain that was not relieved by several tablets of SL NTG. He was hypoxic upon arrival having been placed on BIPAP with improvement. He has been pain free since arrival. Troponin elevated now to 45. He is comfortable at the bedside, having echo performed. He is not describing chest pain or SOB. He is conversant in NAD and hemodynamically stable. Also noted is ARF on CKD. The patient admits to poor hydration. Medical history is significant for CAD having undergone LHC and PCI in November 2016 where he received TERESA to proximal, mid and distal RCA. The pLAD demonstrates a PROTECTIVE SERVICE SPECIALIST with L to L collaterals. His EF at that time was 45% which normalized. He has been following with a Bag Shaker at [facility]. He also has PVD and is planning on LE bypass later this month. Past Med Surg Social Fam HX - Past Medical History Attestation: Yes The following information was validated with the patient. Source: patient, old records reviewed Medical history: COPD, coronary artery disease, diabetes, hyperlipidemia, hypertension, myocardial infarction, peripheral artery disease, renal disease Psychiatric history: no psych history - Social History Smoking Status: Former smoker Smokeless Tobacco Status: No Alcohol use: none Drug use: none - Family History Mother Living Status: Age at : 47 Cause of : heart attack Hx Family Cardiac Disorders: Yes (OK) Hx Family Respiratory Disorders: No Hx Family Cancer: No Hx Family GI Disorders: No Hx Family Endocrine Disorder: Yes (DM) Hx Family Neuromuscular Disorders: No Hx Family Neurologic Disorders: No Hx Family HEENT Disorders: No Hx Family Autoimmune Disorders: No Father Name: Abel Peters Sophia Living Status: Still Living Hx Family Cardiac Disorders: Yes (pacer) Hx Family Respiratory Disorders: No Hx Family Cancer: No Hx Family GI Disorders: No Hx Family Endocrine Disorder: Yes (dM) Hx Family Neuromuscular Disorders: No Hx Family Neurologic Disorders: No Hx Family HEENT Disorders: No Hx Family Autoimmune Disorders: No Son Living Status: Still Living Hx Family Cardiac Disorders: Yes (HTN) Hx Family Respiratory Disorders: No Hx Family Cancer: No Hx Family GI Disorders: No Hx Family Endocrine Disorder: No Hx Family Neuromuscular Disorders: No Hx Family Neurologic Disorders: No Hx Family HEENT Disorders: No Hx Family Autoimmune Disorders: No Medications and Allergies Aspirin [Lo-Dose Aspirin EC] 81 mg PO DAILY 12/09/16 [History] Atorvastatin Calcium [Lipitor] 80 mg PO DAILY 12/09/16 [History] Cilostazol 100 mg PO BID 12/09/16 [History] Clopidogrel [Plavix] 75 mg PO DAILY 12/09/16 [History] Ferrous Gluconate 324 mg PO BID 12/09/16 [History] Gabapentin [Neurontin] 600 mg PO TID 12/09/16 [History] Insulin Degludec [Tresiba Flextouch U-100] 55 unit SQ HS 12/09/16 [History] Insulin Human Regular [HumuLIN R] 20 unit SQ TID 12/09/16 [History] Irbesartan [Avapro] 300 mg PO HS 12/09/16 [History] Metoprolol Tartrate 25 mg PO BID 12/09/16 [History] Omeprazole [PriLOSEC] 20 mg PO DAILY 12/09/16 [History] Vortioxetine Hydrobromide [Trintellix] 10 mg PO DAILY 12/09/16 [History] Albuterol Sulfate [Albuterol Inhaler] 2 puff IH Q4-6H PRN 04/21/17 [History] Amlodipine Besylate [Amlodipine Besylate] 10 mg PO DAILY 04/21/17 [History] Azithromycin [Zithromax] 250 mg PO PER PKG DI 04/21/17 [History] Isosorbide MONOnitrate (24 HR) [Imdur] 60 mg PO DAILY 04/21/17 [History] Spironolactone [Aldactone] 25 mg PO DAILY 04/21/17 [History] hydroCHLOROthiazide [Hydrochlorothiazide] 25 mg PO DAILY 04/21/17 [History] predniSONE [Prednisone] 50 mg PO DAILY 04/21/17 [History] Allergies No Known Allergies Allergy (Verified 12/09/16 02:29) All Systems Review: A 10-system review of systems was performed and is negative for pertinent findings except as documented above in the HPI. - Cardiovascular Cardiovascular: as per HPI Physical Examination Vital signs reviewed. General: Conversant, No Apparent Distress HEENT: Atraumatic, Normocephaly, Mucus Membranes Moist Neck: Other (patient laying left lateral position for exam (currently undergoing echo)) Cardiac: Reg Rate and Rhythm, Normal S1 and S2, No Murmur Lungs: Normal Breath Sounds, No Wheeze, Rales, Rhonchi Neuro: Alert and responsive, No focal deficits noted Abdomen: Soft, Other (normal bowel sounds) Extremities: No Edema, Other (diminished LE pedal pulses, unable to examine femoral pulses (patient undergoing echo), poor radial pulses) Results 04/21/17 05:20 04/21/17 05:20 Lab Results 04/21/17 04/21/17 04/21/17 00:22 00:22 00:22 WBC 22.2 H D Hgb 9.0 L Hct 28.9 L Plt Count 427 H INR 1.1 APTT 27.9 Sodium Potassium Chloride Carbon Dioxide BUN Creatinine Glucose Calcium Magnesium Total Bilirubin AST ALT Alkaline Phosphatase Troponin I 6.92 H* 04/21/17 04/21/17 04/21/17 05:20 05:20 06:26 WBC 15.6 H Hgb 9.0 L Hct 28.4 L Plt Count 417 H INR APTT Sodium 133 L Potassium 4.9 H Chloride 104 Carbon Dioxide 14 L BUN 73 H Creatinine 3.04 H Glucose 480 H Calcium 9.2 Magnesium 2.1 Total Bilirubin 0.1 L AST 148 H ALT 37 Alkaline Phosphatase 108 Troponin I 45.51 H* 04/21/17 08:22 WBC Hgb Hct Plt Count INR APTT 36.5 H Sodium Potassium Chloride Carbon Dioxide BUN Creatinine Glucose Calcium Magnesium Total Bilirubin AST ALT Alkaline Phosphatase Troponin I - Imaging and Cardiology Chest Xray: report reviewed Echo: report reviewed (12/10/16), image reviewed - EKG Interpretation EKG results cardiology: personally reviewed (ECG from 04/20/2017 @ 21:16 reviewed ; demonstrates nonspecific ST abnormalities with mild worsening of ST depression in I and aVL when compared to ECG from 12/10/2016, also associated long first degree AVB seen in 12/10 as well. ECG from 04/21/2017 @ 7:43 reviewed; demonstrates similar nonspecific ST abnormalities with subtle nondiagnostic ST elevation in III/aVF with q waves present), other (24h telemetry demonstrates NSR, average HR 90's, one 5-beat run of NSVT) Consult Discharge Plan - Plan Referrals: NO,PCP [Primary Care Provider] -
[2017-04-21 14:23] VITALS: BP 149/77
[2017-04-21] MEDS ORDERED: Levalbuterol Neb 1.25 MG/3 ML IH SCH (16:00)
[2017-04-21] MEDS ORDERED: Aminoglycoside Consult 1 EACH MC ONE (16:22)
[2017-04-22] MEDS ORDERED: Aspirin Enteric Coated 81 MG Tablet PO SCH (09:00)
--- NOTE | 2017-04-22 12:08 | Electrocardiograph Report ---
[address] [place], [place] [address] Test Date: 2017-04-20 Pat Name: Abel Peters Department: 103 Room: [facility] Gender: M Soaker Hides: KAYLAH : 1955 Requested By: Randal Medrano Order Number: [id number] Reading MD: Jose Conley MD Measurements Intervals [place] Rate: 120 P: DE: 0 QRS: 77 QRSD: 109 T: 63 QT: 302 QTc: 374 Interpretive Statements SUPRAVENTRICULAR TACHYCARDIA Electronically Signed On 04-22-2017 12:06:48 EDT by Jose Conley MD
--- NOTE | 2017-04-22 16:00 | Electrocardiograph Report ---
[place] [id number] Test Date: 2017-04-21 Pat Name: Abel Peters Department: 111 Room: [facility] Gender: M Side Puller: LILLI : 1955 Requested By: Nolberto Hope Order Number: [id number] Reading MD: Marco A Kulkarni Measurements Intervals [place] Rate: 131 P: WI: 0 QRS: 52 QRSD: 108 T: 40 QT: 293 QTc: 370 Interpretive Statements Probable sinus rhythm with LBBB Electronically Signed On 04-22-2017 15:59:02 EDT by Marco A Kulkarni
--- NOTE | 2017-04-22 16:01 | Electrocardiograph Report ---
[place] [id number] Test Date: 2017-04-21 Pat Name: Abel Peters Department: 109 Room: [facility] Gender: M Credit Administration Specialist: GILBERTO : 1955 Requested By: Nolberto Hope Order Number: [id number] Reading MD: Marco A Kulkarni Measurements Intervals [place] Rate: 96 P: 91 VT: 253 QRS: 38 QRSD: 102 T: 73 QT: 372 QTc: 426 Interpretive Statements SINUS RHYTHM WITH FIRST DEGREE AV BLOCK INFERIOR MYOCARDIAL INFARCTION, PROBABLY OLD Electronically Signed On 04-22-2017 15:59:43 EDT by Marco A Kulkarni
[2017-04-24 19:15] LABS: CK-BB (CK isoenzymes) 0 % (0-0); CK-MB (CK isoenzymes) 6 % (0-4); CK-MM (CK-isoenzymes) 94 % (96-100)
[2017-04-24 19:15] LABS: CK-BB (CK isoenzymes) 0 % (0-0); CK-MB (CK isoenzymes) 5 % (0-4); CK-MM (CK-isoenzymes) 95 % (96-100)
[2017-04-26 08:03] LABS: CK Total (Ck Isoenzymes) 1460 U/L (20-200)
[2017-04-26 08:03] LABS: CK Total (Ck Isoenzymes) 1134 U/L (20-200)
== END 2017-04-21 16:23 | disposition other institution (70) | DRG 280 ==
LOC: 2NENU 21:07 → EMEROO 21:07 → 2NENU 04-21 00:01 → ICNU 04-21 02:35
PROVIDERS: ADMIT Internal Medicine Endocrinology, Diabetes & Metabolism; ATTEND Internal Medicine